=== PATIENT | female | born 1950 | race Caucasian/White ===

== ENCOUNTER → 2020-03-11 | Outpatient (CLI) | payer MEDICARE | END | disposition home or self-care (01) | LOC: LAB 15:31 | PROVIDERS: ATTEND Internal Medicine Gastroenterology | DX: Z11.59 Encounter for screening for other viral diseases (principal) | CPT/HCPCS: U0003-CS ==

== ENCOUNTER → 2020-03-15 | Day surgery (SDC) | payer MEDICARE ==
[~2020-03-15] MED LIST: AMIT25TA PO; ATOR40TA59 PO; CALC1CAP7 PO; DIVA-53 PO; IV RINGERS,LACTATED 1000ML 1,000 ML IV SCH; LIDOCAINE 2% PF 5 ML VIAL. ONE; OMEG-128 PO; PROPOFOL 10 MG/ML (20ML) VIAL. IV ONE; SUMA100T4 PO
--- NOTE | 2020-03-15 08:34 | HP ---
ADMIT DATE: 03/15/2020 REFERRING PHYSICIAN: Dr. Jas Garcia. REASON FOR CONSULTATION: History of colon cancer. HISTORY OF PRESENT ILLNESS: This is a 69-year-old female whose past medical history is significant for hyperlipidemia as well as colon cancer, colon polyps, and skin cancer, seen for interval colon exam. Bowel habits are regular without constipation, but occasional diarrhea. There has been no bleeding. Weight and appetite are stable. She is otherwise without additional complaints. PAST MEDICAL HISTORY: Hyperlipidemia, colon cancer, colon polyps, and skin cancer. ALLERGIES: SULFA. MEDICATIONS: Include amitriptyline, atorvastatin, calcium, divalproex, omega-3 and sumatriptan succinate. FAMILY HISTORY: Significant for diabetes with brother and ovarian cancer with grandmother. SOCIAL HISTORY: Nonsmoker and nondrinker. PAST SURGICAL HISTORY: Hysterectomy. REVIEW OF SYSTEMS: Per records. PHYSICAL EXAMINATION: GENERAL: Reveals a well-nourished, well-developed female who is alert and cooperative, in no acute distress. LUNGS: Clear. CARDIOVASCULAR: Reveals an S1, S2 without S3, S4 or appreciable murmur. ABDOMEN: Reveals a soft abdomen, normal bowel sounds, without appreciable hepatosplenomegaly. EXTREMITIES: Reveals no cyanosis, clubbing or edema. IMPRESSION AND PLAN: History of colon cancer. Surveillance exam is recommended at this time. Risks and benefits of procedure including risk of perforation requiring operation have been discussed. The patient is willing to proceed. KARTHIKEYAN PENNY MD DR: BETTE/mary JOB#: [id number] / [id number]
[2020-03-15 09:15] VITALS: BP 118/66
== END ==
LOC: ENDOS 07:36 → EDUNIT# 08:30
PROVIDERS: ATTEND Internal Medicine Gastroenterology
DX: Z12.11 Encounter for screening for malignant neoplasm of colon (principal); K64.0 First degree hemorrhoids; K63.89 Other specified diseases of intestine; E78.5 Hyperlipidemia, unspecified; Z86.010 Personal history of colon polyps; Z85.038 Personal history of other malignant neoplasm of large intestine; Z85.828 Personal history of other malignant neoplasm of skin; Z88.1 Allergy status to other antibiotic agents; Z90.710 Acquired absence of both cervix and uterus
CPT/HCPCS: G0105; J2704; J3490; 45378